=== PATIENT | female | born 1990 | race Caucasian/White ===

== ENCOUNTER → 2021-11-08 | Outpatient (CLI) | payer OTHER ==
[~2021-11-08] MED LIST: Microgestin1 EAC1 PO
== END | disposition home or self-care (01) ==
LOC: LAB SHORT 11:42 → LAB 11:42
DX: J02.9 Acute pharyngitis, unspecified (principal)
CPT/HCPCS: 87081

== ENCOUNTER → 2024-01-17 | Outpatient (CLI) | payer OTHER ==
[~2024-01-17] MED LIST changes: +HUMIRA PEN40 MG/0.2 SQ
[2024-01-20 02:45] LABS: CALPROTECTIN,FECAL 141 ug/g (<=49)
== END | disposition home or self-care (01) ==
LOC: LAB 07:58 → LAB SHORT 07:58
PROVIDERS: Physician Assistant Medical
DX: K50.819 Crohn's disease of both small and large intestine with unspecified complications (principal)
CPT/HCPCS: 83993

== ENCOUNTER → 2024-04-12 | Outpatient (CLI) | payer OTHER ==
[2024-04-12 11:56] LABS: Protein, Urine Quantitative 10.1 mg/dL (0.0-11.9)
== END | disposition home or self-care (01) ==
LOC: LAB 10:19 → LAB SHORT 10:19
PROVIDERS: Obstetrics & Gynecology
DX: R03.0 Elevated blood-pressure reading, without diagnosis of hypertension (principal)
CPT/HCPCS: 84156

== ENCOUNTER → 2024-05-05 | Outpatient (CLI) | payer OTHER ==
[2024-05-05 12:28] LABS: C DIFFICILE DNA NEGATIVE (Negative)
[2024-05-07 20:05] LABS: CALPROTECTIN,FECAL 485 ug/g (<=49)
== END ==
LOC: LAB SHORT 09:17 → LAB 09:17
PROVIDERS: Internal Medicine Gastroenterology
DX: K50.819 Crohn's disease of both small and large intestine with unspecified complications (principal)
CPT/HCPCS: 83993; 87493

== ENCOUNTER → 2024-05-30 | Outpatient (CLI) | payer OTHER | END | disposition home or self-care (01) | LOC: LAB SHORT 09:07 → LAB 09:07 | DX: O09.891 Supervision of other high risk pregnancies, first trimester (principal) | CPT/HCPCS: 87081; 87150 ==

== ENCOUNTER 2024-06-15 19:16 | Inpatient (IN) | payer OTHER ==
[~2024-06-15] VITALS: Ht 167.6 cm; Wt 103.8 kg
[2024-06-15] MEDS ORDERED: OXYTOCIN/RINGER'S LACTATE 500 ML IV PRN (19:45)
[2024-06-15] MEDS ORDERED: Misoprostol 200 MCG Tab PR PRN (19:45)
[2024-06-15] MEDS ORDERED: OXYTOCIN/RINGER'S LACTATE 500 ML IV SCH (19:45)
[2024-06-15] MEDS ORDERED: Ondansetron HCl 2 MG / ML 2ML Vial IV PRN (19:45)
[2024-06-15] MEDS ORDERED: Calcium Carbonate 500 MG Tab Chew PO PRN (19:45)
[2024-06-15] MEDS ORDERED: Lactated Ringer's 1,000 ML IV SCH ×3 (19:45→22:55)
[2024-06-15] MEDS ORDERED: Methylergonovine Maleate 0.2MG / ML 1ML Amp IM PRN (19:45)
[2024-06-15] MEDS ORDERED: Oxytocin 10 Unit / ML Vial IM PRN (19:45)
[2024-06-15] MEDS ORDERED: Carboprost Tromethamine 250 MCG/ML 1ML Amp IM PRN (19:45)
[2024-06-15] MEDS ORDERED: Acetaminophen 500 MG Tab PO PRN (19:45)
[2024-06-15] MEDS ORDERED: Misoprostol 200 MCG Tab BC PRN (19:45)
[2024-06-15] MEDS ORDERED: Lactated Ringer's 1,000 ML IV PRN (19:45)
[2024-06-15] MEDS ORDERED: Misoprostol 25 MCG Tab VAG PRN (19:45)
[2024-06-15 19:54] VITALS: BP 119/71
[2024-06-15] MEDS ORDERED: Tranexamic Acid 100 ML IV SCH (20:00)
[2024-06-15 20:50] LABS: BASOPHILS ABSOLUTE AUTO 0.04 K/mm3 (0.00-0.23); BASOPHILS PERCENT AUTO 0 % (0-2); EOSINOPHILS ABSOLUTE AUTO 0.08 K/mm3 (0.00-0.68); EOSINOPHILS PERCENT AUTO 1 % (0-6); Hemoglobin 13.5 g/dL (11.5-16.0); IMMATURE GRAN ABSOLUTE AUTO 0.11 K/mm3 (0.00-0.10); IMMATURE GRAN PERCENT AUTO 1 % (0-1); LYMPHOCYTES ABSOLUTE AUTO 1.61 K/mm3 (0.84-5.20); LYMPHOCYTES PERCENT AUTO 14 % (21-46); MONOCYTES ABSOLUTE AUTO 0.64 K/mm3 (0.16-1.47); MONOCYTES PERCENT AUTO 5 % (4-13); Mean Corpuscular HGB Conc 34.6 g/dL (31.5-36.5); Mean Corpuscular Volume 84 fL (80-100); Mean Platelet Volume 10.6 fL (9.1-12.4); NEUTROPHILS ABSOLUTE AUTO 9.46 K/mm3 (1.96-9.15); NEUTROPHILS PERCENT AUTO 79 % (41-73); Platelet Count 200 K/mm3 (150-400); RDW Coefficient Variation 13.6 % (11.7-14.2); RDW Standard Deviation 41.3 fL (35.1-46.3); Red Blood Cell Count 4.65 M/mm3 (3.80-5.20); White Blood Cell Count 11.94 K/mm3 (4.00-11.30)
--- NOTE | 2024-06-15 21:00 | NUR ---
PER DR. SOTO: IF PATIENT IS POLO TOO MUCH FOR CYTOTEC DURING THE NIGHT, START OXYTOCIN AT 0500 PER ORDER
[2024-06-15 21:10] VITALS: BP 120/67
[2024-06-15 21:13] LABS: Albumin, Blood 2.8 g/dL (3.4-5.0); Albumin/Globulin Ratio 0.7 (0.8-1.8); Bilirubin, Total 0.3 mg/dL (0.1-1.0); Bun/Creatinine Ratio 9.3 (12.0-20.0); Calcium, Blood 9.4 mg/dL (8.5-10.1); Creatinine, Blood 0.54 mg/dL (0.40-1.00); Potassium, Blood 3.5 mmol/L (3.5-5.5); Total Protein, Blood 6.8 g/dL (6.4-8.2)
[2024-06-15 21:40] VITALS: BP 122/80
[2024-06-15 22:11] VITALS: BP 107/61
[2024-06-15 22:40] VITALS: BP 105/58
[2024-06-15] MEDS ORDERED: FentaNYL 2mcg/ml-Bup 0.1% Epd 250 ML EPI PRN (22:55)
[2024-06-15] MEDS ORDERED: ePHEDrine Sulfate 50 MG/ML 1ML Injection XX PRN (22:55)
[2024-06-15] MEDS ORDERED: FentaNYL Citrate 50 MCG/ML 2 ML Injection IV PRN (22:55)
[2024-06-15] MEDS ORDERED: Penicillin G Potassium 5,000,000 UNITS in NS 250 ML IV ONE (23:05)
[2024-06-15 23:11] VITALS: BP 110/58
[2024-06-16] VITALS (16 sets, daily range): BP systolic 97–127; BP diastolic 52–85
[2024-06-16] MEDS ORDERED: PENICILLIN POTASSIUM IV SCH (05:00)
[2024-06-16] MEDS ORDERED: Penicillin G Potassium 5,000,000 UNITS in NS 250 ML IV ONE (05:00)
[2024-06-16] MEDS ORDERED: Penicillin G Potassium 2,500,000 UNITS in Dextrose 5% 100 ML IV SCH (09:00)
[2024-06-16] MEDS ORDERED: Misoprostol 25 MCG Tab PO PRN (13:45)
[2024-06-16] MEDS ORDERED: DiphenhydrAMINE HCL 25 MG Cap PO PRN (21:00)
[2024-06-17 00:04] VITALS: BP 115/58
[2024-06-17 04:19] VITALS: BP 109/67
[2024-06-17 08:47] VITALS: BP 95/55
[2024-06-17] MEDS ORDERED: PENICILLIN POTASSIUM IV SCH (09:05)
== END 2024-06-17 11:45 | disposition home or self-care (01) | DRG 832 ==
LOC: OBS 19:16 → BC 19:17 → OBS 19:47 → BC 19:48
PROVIDERS: ADMIT Obstetrics & Gynecology
PROC: 3E033VJ Introduction of Other Hormone into Peripheral Vein, Percutaneous Approach (ICD-10-PCS; principal; 2024-06-15)
PROC: 3E0DXGC Introduction of Other Therapeutic Substance into Mouth and Pharynx, External Approach (ICD-10-PCS; principal; 2024-06-15)
PROC: 0U7C7ZZ Dilation of Cervix, Via Natural or Artificial Opening (ICD-10-PCS; principal; 2024-06-15)
DX: O16.3 Unspecified maternal hypertension, third trimester (principal); K50.90 Crohn's disease, unspecified, without complications; Z3A.39 39 weeks gestation of pregnancy; O99.613 Diseases of the digestive system complicating pregnancy, third trimester; Z14.8 Genetic carrier of other disease; O61.0 Failed medical induction of labor
CPT/HCPCS: 36415; 59025; 59200; 80053; 85025; 86850; 86900; 86901; A9270; J2540; J2590; J3010; J7050; J7120

== ENCOUNTER 2024-06-20 02:51 | Inpatient (IN) | payer OTHER ==
[2024-06-20] VITALS (17 sets, daily range): BP systolic 98–135; BP diastolic 52–83
[~2024-06-20] VITALS: Ht 167.6 cm; Wt 105.0 kg
[2024-06-20] MEDS ORDERED: PRENATAL TABLE1 EAC2 PO (03:21)
[2024-06-20] MEDS ORDERED: OXYTOCIN/RINGER'S LACTATE 500 ML IV PRN (03:40)
[2024-06-20] MEDS ORDERED: Misoprostol 200 MCG Tab BC PRN (03:40)
[2024-06-20] MEDS ORDERED: Lactated Ringer's 1,000 ML IV SCH ×3 (03:40→09:35)
[2024-06-20] MEDS ORDERED: Lactated Ringer's 1,000 ML IV PRN (03:40)
[2024-06-20] MEDS ORDERED: Carboprost Tromethamine 250 MCG/ML 1ML Amp IM PRN (03:40)
[2024-06-20] MEDS ORDERED: Misoprostol 200 MCG Tab PR PRN (03:40)
[2024-06-20] MEDS ORDERED: ePHEDrine Sulfate 50 MG/ML 1ML Injection XX PRN (03:40)
[2024-06-20] MEDS ORDERED: Tranexamic Acid 100 ML IV SCH (03:40)
[2024-06-20] MEDS ORDERED: Ondansetron HCl 2 MG / ML 2ML Vial IV PRN (03:40)
[2024-06-20] MEDS ORDERED: Methylergonovine Maleate 0.2MG / ML 1ML Amp IM PRN (03:40)
[2024-06-20] MEDS ORDERED: Acetaminophen 500 MG Tab PO PRN (03:40)
[2024-06-20] MEDS ORDERED: Oxytocin 10 Unit / ML Vial IM PRN (03:40)
[2024-06-20] MEDS ORDERED: FentaNYL 2mcg/ml-Bup 0.1% Epd 250 ML EPI PRN (03:40)
[2024-06-20] MEDS ORDERED: Calcium Carbonate 500 MG Tab Chew PO PRN (03:45)
[2024-06-20] MEDS ORDERED: Penicillin G Potassium 5,000,000 UNITS in NS 250 ML IV ONE ×2 (03:45→17:10)
[2024-06-20] MEDS ORDERED: FentaNYL Citrate 50 MCG/ML 2 ML Injection IV PRN (03:50)
[2024-06-20] MEDS ORDERED: Misoprostol 25 MCG Tab VAG SCH (04:00)
[2024-06-20 04:06] LABS: BASOPHILS ABSOLUTE AUTO 0.03 K/mm3 (0.00-0.23); BASOPHILS PERCENT AUTO 0 % (0-2); EOSINOPHILS ABSOLUTE AUTO 0.15 K/mm3 (0.00-0.68); EOSINOPHILS PERCENT AUTO 1 % (0-6); Hematocrit 40.9 % (33.0-51.0); Hemoglobin 13.9 g/dL (11.5-16.0); IMMATURE GRAN ABSOLUTE AUTO 0.11 K/mm3 (0.00-0.10); IMMATURE GRAN PERCENT AUTO 1 % (0-1); LYMPHOCYTES ABSOLUTE AUTO 1.73 K/mm3 (0.84-5.20); LYMPHOCYTES PERCENT AUTO 14 % (21-46); MONOCYTES ABSOLUTE AUTO 0.73 K/mm3 (0.16-1.47); MONOCYTES PERCENT AUTO 6 % (4-13); Mean Corpuscular HGB 28.5 pg (26.0-34.0); Mean Corpuscular Volume 84 fL (80-100); Mean Platelet Volume 11.3 fL (9.1-12.4); NEUTROPHILS ABSOLUTE AUTO 9.89 K/mm3 (1.96-9.15); NEUTROPHILS PERCENT AUTO 78 % (41-73); Platelet Count 205 K/mm3 (150-400); RDW Coefficient Variation 13.5 % (11.7-14.2); RDW Standard Deviation 41.3 fL (35.1-46.3); Red Blood Cell Count 4.88 M/mm3 (3.80-5.20); White Blood Cell Count 12.64 K/mm3 (4.00-11.30)
[2024-06-20] MEDS ORDERED: OXYTOCIN/RINGER'S LACTATE 500 ML IV SCH (09:35)
[2024-06-20] MEDS ORDERED: Penicillin G Potassium 2,500,000 UNITS in Dextrose 5% 100 ML IV SCH (21:30)
[2024-06-21] VITALS (17 sets, daily range): BP systolic 93–129; BP diastolic 48–74
[2024-06-21] MEDS ORDERED: NS 1,000 ML IV ONE ×2 (02:11→02:15)
[2024-06-21] MEDS ORDERED: CeFAZolin Sodium 2,000 MG in NS 100 ML IV SCH (02:25)
[2024-06-21] MEDS ORDERED: Azithromycin 500 MG in NS 250 ML IV SCH ×2 (02:25→02:35)
[2024-06-21] MEDS ORDERED: Citric Acid/Sodium Citrate 30 ML BTL PO ONE (02:30)
[2024-06-21] MEDS ORDERED: Metoclopramide HCl 5MG / ML 2ML Vial IV ONE (02:30)
[2024-06-21] MEDS ORDERED: Acetaminophen 325 MG TABLET PO PRN (07:30)
[2024-06-21] MEDS ORDERED: Ketorolac Tromethamine 30mg Vial IV PRN (07:30)
[2024-06-21] MEDS ORDERED: Lactated Ringer's 1,000 ML IV SCH (07:30)
[2024-06-21] MEDS ORDERED: Witch Hazel/Glycerin PADS TOP PRN (07:30)
[2024-06-21] MEDS ORDERED: Methylergonovine Maleate 0.2MG / ML 1ML Amp IM PRN (07:30)
[2024-06-21] MEDS ORDERED: OXYTOCIN/RINGER'S LACTATE 500 ML IV SCH (07:35)
[2024-06-21] MEDS ORDERED: Lanolin Cream TOP PRN (07:35)
[2024-06-21] MEDS ORDERED: FLU VACC TS2024-25(6MOS UP)/PF 45 MCG/0.5 ML SYRINGE IM PRN (07:35)
[2024-06-21] MEDS ORDERED: Docusate Sodium 100 MG Cap PO PRN (07:35)
[2024-06-21] MEDS ORDERED: Benzocaine Topical Anesthetic Spray 60GM TOP PRN (07:35)
[2024-06-21] MEDS ORDERED: Misoprostol 200 MCG Tab BC PRN (07:45)
[2024-06-21] MEDS ORDERED: Polyethylene Glycol 3350 17 gm PO SCH (09:00)
[2024-06-21] MEDS ORDERED: Psyllium 1 EA Pack PO SCH (09:00)
[2024-06-21] MEDS ORDERED: Prenatal Vit/FE Fumarate/FA 1 Tab PO SCH (09:00)
[2024-06-22] MEDS ORDERED: Ibuprofen 400 MG Tab PO PRN (02:00)
[2024-06-22 04:47] VITALS: BP 110/61
[2024-06-22 07:44] VITALS: BP 117/59
[2024-06-22] MEDS ORDERED: Polyethylene Glycol 3350 17 gm PO PRN (08:40)
[2024-06-22] MEDS ORDERED: IBUP400 PO (09:51)
[2024-06-22] MEDS ORDERED: ACET500 PO (09:51)
[2024-06-22] MEDS ORDERED: MIRALAX1714 PO (09:52)
== END 2024-06-22 11:45 | disposition home or self-care (01) | DRG 768 ==
LOC: OBS 02:51 → BC 02:55 → OBS 03:02 → BC 03:02
PROVIDERS: ADMIT Obstetrics & Gynecology
PROC: 10E0XZZ Delivery of Products of Conception, External Approach (ICD-10-PCS; principal; 2024-06-21)
PROC: 0DQQXZZ Repair Anus, External Approach (ICD-10-PCS; 2024-06-21)
PROC: 0KQM0ZZ Repair Perineum Muscle, Open Approach (ICD-10-PCS; 2024-06-21)
PROC: 10H07YZ Insertion of Other Device into Products of Conception, Via Natural or Artificial Opening (ICD-10-PCS; 2024-06-21)
PROC: 3E0R3BZ Introduction of Anesthetic Agent into Spinal Canal, Percutaneous Approach (ICD-10-PCS; 2024-06-21)
PROC: 00HU33Z Insertion of Infusion Device into Spinal Canal, Percutaneous Approach (ICD-10-PCS; 2024-06-21)
DX: O10.92 Unspecified pre-existing hypertension complicating childbirth (principal); Z37.0 Single live birth; K50.90 Crohn's disease, unspecified, without complications; Z3A.39 39 weeks gestation of pregnancy; O99.62 Diseases of the digestive system complicating childbirth; O70.1 Second degree perineal laceration during delivery; O77.0 Labor and delivery complicated by meconium in amniotic fluid; O99.892 Other specified diseases and conditions complicating childbirth; R00.1 Bradycardia, unspecified
CPT/HCPCS: 36415; 51702; 85025; 86850; 86900; 86901; 86923; A9270; J2405; J2540; J2590; J7030; J7050; J7120

== ENCOUNTER → 2025-01-09 | Outpatient (CLI) | payer OTHER ==
[~2025-01-09] MED LIST changes: +ACET500 PO; +IBUP400 PO; +MIRALAX1714 PO; +PRENATAL TABLE1 EAC2 PO
[2025-01-09 14:53] LABS: Protein, Urine Quantitative 15.4 mg/dL (0.0-11.9)
== END ==
LOC: LAB 11:54 → LAB SHORT 11:54
PROVIDERS: Obstetrics & Gynecology
DX: I10 Essential (primary) hypertension (principal)
CPT/HCPCS: 81050; 84156

== ENCOUNTER → 2025-03-12 | Outpatient (CLI) | payer OTHER ==
[2025-03-15 16:41] LABS: CALPROTECTIN,FECAL 77 ug/g (<=49)
== END | disposition home or self-care (01) ==
LOC: LAB SHORT 19:45 → LAB 19:45 → EDSTATUS 03-09 12:50 → LAB FUT 03-09 12:50
PROVIDERS: Physician Assistant Medical
DX: K50.819 Crohn's disease of both small and large intestine with unspecified complications (principal)
CPT/HCPCS: 83993